=== PATIENT | female | born 1995 | race Caucasian/White ===

== ENCOUNTER 2023-03-07 00:10 | Inpatient (IN) | payer OTHER ==
[2023-03-07] MEDS ORDERED: ELECTROLYTE-148 SOLN 500 ML IV SCH ×2 (01:03→01:33)
[2023-03-07 01:51] VITALS: BMI 26.5
[2023-03-07 02:01] LABS: BASO % 0.2 % (0-2.0); EOS % 0.5 % (0-4.5); HEMATOCRIT 38.2 % (32.4-45.2); HEMOGLOBIN 13.1 GM/dL (10.7-15.3); LYMPH % 21.6 % (8-40); MCH 31.2 pg (25.7-33.7); MCHC 34.3 g/dl (32.0-36.0); MEAN CELL VOLUME 90.9 fl (80-96); MEAN PLT VOLUME 10.2 fl (7.5-11.1); MONO % 6.8 % (3.8-10.2); NEUT % 70.9 % (42.8-82.8); PLATELET COUNT 232 10^3/uL (134-434); RBC 4.21 M/mm3 (3.60-5.2); RDW 13.5 % (11.6-15.6); WHITE BLOOD COUNT 11.5 K/mm3 (4.0-10.0)
[2023-03-07 02:02] LABS: INR 0.96 (0.83-1.09); PROTHROMBIN TIME (PATIENT) 11.1 SEC (9.7-13.0)
[2023-03-07 02:05] LABS: ACTIVATED PTT 25.9 SECONDS (25.2-36.5)
[2023-03-07 03:01] LABS: POTASSIUM 4.1 mmol/L (3.5-5.1)
[2023-03-07 03:02] LABS: CALCIUM 8.3 mg/dL (8.5-10.1)
[2023-03-07 03:04] LABS: BLOOD UREA NITROGEN 13.7 mg/dL (7-18)
[2023-03-07 03:06] LABS: CREATININE 0.8 mg/dL (0.55-1.3)
[2023-03-07 04:02] LABS: HIV INTERPRETATION NEGATIVE (NEGATIVE)
[2023-03-07] MEDS ORDERED: FENTANYL/BUPIVACAINE/NS/PF - PCEA - 50 ML DISP.SYRIN EP ONE (05:33)
[2023-03-07] MEDS ORDERED: NALOXONE HCL 0.4 MG/ML VIAL IVPUSH PRN (06:21)
[2023-03-07] MEDS ORDERED: FENTANYL/BUPIVACAINE/NS/PF - PCEA - 50 ML DISP.SYRIN EP SCH (06:30)
[2023-03-07] MEDS ORDERED: CITRIC ACID/SODIUM CITRATE 30 ML UNIT-DOSE CUP PO ONE (08:35)
[2023-03-07] MEDS ORDERED: LIDO 2%/EPI 1:200000 PRESRVFRE (20 ML SDVIAL) ONE (08:38)
[2023-03-07] MEDS ORDERED: ACETAMINOPHEN 325 MG TABLET (FP) PO PRN ×2 (09:42→09:43)
[2023-03-07] MEDS ORDERED: SENNOSIDES/DOCUSATE COMBO (SENNA PLUS) TABLET (UD) PO PRN (09:42)
[2023-03-07] MEDS ORDERED: IBUPROFEN 800 MG/8 ML IJ IVPB PRN (09:42)
[2023-03-07] MEDS ORDERED: METHYLERGONOVINE MALEATE 0.2 MG/1 ML AMP IM PRN (09:42)
[2023-03-07] MEDS ORDERED: ONDANSETRON 4 MG/2 ML VIAL IVPUSH PRN (09:43)
[2023-03-07] MEDS ORDERED: IBUPROFEN 600 MG TABLET (FP) PO PRN (09:43)
[2023-03-07] MEDS ORDERED: ACETAMINOPHEN 1000 MG/100 ML BAG IVPB PRN (09:45)
[2023-03-07] MEDS ORDERED: IBUPROFEN 800 MG/8 ML IJ IVPB ONE (10:43)
[2023-03-07] MEDS ORDERED: OXYTOCIN 20 UNITS in 0.9% NS 20 UNIT/1,000 ML INFUS.BAG IV ONE (10:48)
[2023-03-07] MEDS: OXYTOCIN 20 UNITS in 0.9% NS 20 UNIT/1,000 ML INFUS.BAG IV SCH ×2 (10:50→21:09)
[2023-03-07] MEDS: PRENATAL VITAMINS W/ FOLIC ACID TABLET (FP) PO SCH (11:48)
[2023-03-07] MEDS: FERROUS SO4 325 MG TABLET (FP) PO SCH ×2 (11:50→22:05)
[2023-03-07 13:07] LABS: POC NITRAZINE POS
[2023-03-07] MEDS ORDERED: oxyCODONE HCL 5 MG TABLET PO PRN ×2 (21:42)
[2023-03-08] MEDS: SIMETHICONE 80 MG TAB.CHEW (FP) PO PRN ×2 (06:23→20:07)
[2023-03-08] MEDS: IBUPROFEN 600 MG TABLET (FP) PO PRN ×2 (06:24→20:08)
[2023-03-08 08:32] LABS: BASO % 0.3 % (0-2.0); EOS % 0.2 % (0-4.5); HEMATOCRIT 31.9 % (32.4-45.2); HEMOGLOBIN 10.8 GM/dL (10.7-15.3); LYMPH % 14.7 % (8-40); MCH 31.6 pg (25.7-33.7); MCHC 33.9 g/dl (32.0-36.0); MEAN CELL VOLUME 93.1 fl (80-96); MONO % 5.6 % (3.8-10.2); NEUT % 79.2 % (42.8-82.8); PLATELET COUNT 140 10^3/uL (134-434); RBC 3.43 M/mm3 (3.60-5.2); RDW 13.2 % (11.6-15.6)
[2023-03-08] MEDS: PRENATAL VITAMINS W/ FOLIC ACID TABLET (FP) PO SCH (09:11)
[2023-03-08] MEDS: FERROUS SO4 325 MG TABLET (FP) PO SCH ×2 (09:11→21:37)
[2023-03-08] MEDS ORDERED: BISACODYL 10 MG SUPP.RECT RC PRN (09:42)
[2023-03-08] MEDS: OXYTOCIN 20 UNITS in 0.9% NS 20 UNIT/1,000 ML INFUS.BAG IV SCH (10:07)
[2023-03-09] MEDS: IBUPROFEN 600 MG TABLET (FP) PO PRN ×3 (07:59→21:37)
[2023-03-09] MEDS: FERROUS SO4 325 MG TABLET (FP) PO SCH ×2 (09:11→21:37)
[2023-03-09] MEDS: PRENATAL VITAMINS W/ FOLIC ACID TABLET (FP) PO SCH (09:11)
[2023-03-09] MEDS: SIMETHICONE 80 MG TAB.CHEW (FP) PO PRN ×2 (16:32→21:37)
[2023-03-10] MEDS: IBUPROFEN 600 MG TABLET (FP) PO PRN (04:09)
[2023-03-10 09:13] VITALS: BP 124/83; PULSE 66; RESP 18; TEMP 98.2
[2023-03-10] MEDS: PRENATAL VITAMINS W/ FOLIC ACID TABLET (FP) PO SCH (09:54)
[2023-03-10] MEDS: FERROUS SO4 325 MG TABLET (FP) PO SCH (09:54)
== END 2023-03-10 13:00 | disposition home or self-care (01) | DRG 540 ==
LOC: JLDR 00:10 → EDBD 00:10 → J3W 11:00
PROVIDERS: ADMIT Obstetrics & Gynecology; ATTEND Obstetrics & Gynecology
PROC: 10D00Z1 Extraction of Products of Conception, Low, Open Approach (ICD-10-PCS; principal; 2023-03-07)
DX: O76 Abnormality in fetal heart rate and rhythm complicating labor and delivery (principal); O69.81X0 Labor and delivery complicated by cord around neck, without compression, not applicable or unspecified; Z3A.40 40 weeks gestation of pregnancy; Z37.0 Single live birth
CPT/HCPCS: 36415; 80048; 83986-QW; 85025; 85610; 85730; 86780; 86850; 86900; 86901; 87389; 88307-TC; 94010